=== PATIENT | female | born 1950 | race Caucasian/White ===

== ENCOUNTER 2021-02-27 20:10 | Inpatient (IN) | payer MEDICARE ==
[2021-02-27] MEDS ORDERED: Ondansetron PF 4 MG/2 ML Vial IVP PRN (21:20)
[2021-02-27] MEDS ORDERED: Acetaminophen 650 MG Suppository PR PRN (21:20)
[2021-02-27] MEDS ORDERED: Bisacodyl 10 MG SUPP PR PRN (21:20)
[2021-02-27] MEDS ORDERED: hydrALAZINE 20 MG/ML VIAL SLOW IVP PRN (21:20)
[2021-02-27] MEDS ORDERED: Aspirin 300 MG Suppository ONE (21:33)
[2021-02-27] MEDS ORDERED: Ondansetron PF 4 MG/2 ML Vial ONE (21:57)
[2021-02-27] MEDS ORDERED: Enoxaparin Sodium 40 MG/0.4 ML SYRINGE SC SCH (22:30)
[2021-02-28] MEDS: Lactated Ringer's 1,000 ML IV SCH ×2 (02:42→14:08)
[2021-02-28 02:44] VITALS: BMI 26.5
[2021-02-28] MEDS ORDERED: Enoxaparin Sodium 40 MG/0.4 ML SYRINGE ONE (02:51)
[2021-02-28 06:36] LABS: Hemoglobin 12.4 g/dL (12.0-16.0); Mean Corpuscular HGB CONC 33.7 g/dL (32.0-36.0); Mean Corpuscular Hemoglobin 28.2 pg (27.0-31.0); Mean Corpuscular Volume 83.7 fL (78.0-98.0); Mean Platelet Volume 7.4 fL (7.4-10.4); Platelet Count 435 thou/uL (130-400); Red Blood Cell (RBC) Count 4.39 mill/uL (4.20-5.40); White Blood Cell (WBC) Count 13.7 thou/uL (4.8-10.8)
[2021-02-28 06:37] LABS: Band 3 % (5-11); Lymphocytes 10 % (21-51); MDiff Complete? YES; Monocytes 5 % (0-10); Neutrophil 82 % (42-75)
[2021-02-28 06:45] LABS: ALT (SGPT) 12 U/L (8-55); AST (SGOT) 16 U/L (5-34); Albumin 3.8 g/dL (3.4-4.8); Alkaline Phosphatase 95 U/L (40-110); Anion Gap 19 mmol/L (10-20); BUN (Urea Nitrogen) 21 mg/dL (9.8-20.1); Bilirubin, Total 0.5 mg/dL (0.2-1.2); Calc. Creatinine Clearance 62 mL/min (70-130); Carbon Dioxide 19 mmol/L (23-31); Cardiac Risk 6.3 (Less than 4.5); Chloride 99 mmol/L (98-107); Cholesterol 246 mg/dl (< 200 Desired); Globulin 3.3 g/dL (2.4-3.5); Glucose 144 mg/dL (83-110); HDL Cholesterol 39 mg/dL (>60 Neg Risk); Potassium 3.3 mmol/L (3.5-5.1); Protein, Total 7.1 g/dL (5.8-8.1); Sodium 134 mmol/L (136-145); Triglycerides 707 mg/dL (Less than 150)
[2021-02-28] MEDS ORDERED: Enoxaparin Sodium 30 MG/0.3 ML SYRINGE SC SCH (09:00)
[2021-02-28] MEDS ORDERED: FLU VACC QS2021-22(65YR UP)/PF 240 MCG/0.7 ML SYRINGE IM ONE (09:00)
[2021-02-28] MEDS ORDERED: Aspirin 300 MG Suppository PR SCH (09:00)
[2021-02-28] MEDS ORDERED: Famotidine/PF 20 mg/2ml Vial SLOW IVP SCH (09:00)
[2021-02-28] MEDS ORDERED: Famotidine/PF 20 mg/2ml Vial ONE (09:27)
[2021-02-28] MEDS ORDERED: Aspirin 300 MG Suppository ONE (09:27)
[2021-02-28] MEDS ORDERED: Enoxaparin Sodium 30 MG/0.3 ML SYRINGE ONE (09:27)
[2021-02-28 11:10] LABS: Syphilis Antibody Nonreactive (Nonreactive); Syphilis Antibody Index 0.03 S/CO (<1.00 Non-Reactive)
[2021-02-28 12:29] LABS: SARS-CoV-2 PCR by NAA Not Detected (NotDetected)
[2021-02-28 15:43] LABS: ANA Symphony (Qualitative) Negative (Negative); ANA Symphony (Quantitative) 0.2 Ratio (< 0.7 Negative); CCP IgG Antibody 1.6 EliAU/mL (<7 Negative); EliA RAS New Method **** NEW METHOD ****; Rheumatoid Factor IgA Antibody 7.7 IU/mL (<14 Negative); Rheumatoid Factor IgM Antibody Less than 0.5 IU/mL (<3.5 Negative); dsDNA IgG Antibody 4.2 IU/mL (<10 Negative)
[2021-02-28 18:58] LABS: Bacteria/HPF 4+ HPF (None Seen); Bilirubin Negative (Negative); Blood, Urine Trace (Negative); Clarity Clear (Clear); Glucose, Urine (Dipstick) Normal (Negative); Ketone, Urine 40 mg/dL (Negative); Leukocyte 25 Leu/uL (Negative); Nitrite Negative (Negative); Protein, Urine (Dipstick) Negative (Neg-Trace); RBC/HPF 0-3 HPF (0-3); Specific Gravity, Urine 1.019 (1.002-1.036); Squamous Epithelial 0-3 HPF (0-3); Urobilinogen Normal mg/dL (Less than 2); pH, Urine 6.5 (5.0-9.0)
[2021-02-28] MEDS ORDERED: Electrolyte Replacement Protocol 1 EACH FS PRN (19:40)
[2021-02-28] MEDS ORDERED: Acetaminophen 325 MG TAB ONE ×2 (19:56)
[2021-02-28] MEDS ORDERED: cefTRIAXone\\ROCEPHIN 1 GM VIAL ONE (19:58)
[2021-02-28] MEDS: cefTRIAXone\\ROCEPHIN 1 GM in Sodium Chloride 0.9% 100 ML IVPB SCH (20:04)
[2021-02-28] MEDS: Atorvastatin Calcium 40 MG TAB PO SCH (20:04)
[2021-02-28] MEDS: Acetaminophen 325 MG TAB PO PRN (20:05)
[2021-03-01 07:05] LABS: #Basophils 0.1 thou/uL (0.0-0.2); #Eosinphils 0.1 thou/uL (0.0-0.7); #Lymphocytes 2.9 thou/uL (1.20-3.40); #Monocytes 0.8 thou/uL (0.11-0.59); #Neutrophils 4.8 thou/uL (1.40-6.50); %Eosinophils 1.2 % (0.0-10.0); %Lymphocytes 33.2 % (21.0-51.0); %Monocytes 9.3 % (0.0-10.0); %Neutrophils 55.3 % (42.0-75.0); Mean Corpuscular HGB CONC 32.8 g/dL (32.0-36.0); Mean Corpuscular Hemoglobin 27.9 pg (27.0-31.0); Mean Platelet Volume 6.9 fL (7.4-10.4); Platelet Count 352 thou/uL (130-400); White Blood Cell (WBC) Count 8.6 thou/uL (4.8-10.8)
[2021-03-01 07:25] LABS: Anion Gap 13 mmol/L (10-20); BUN (Urea Nitrogen) 14 mg/dL (9.8-20.1); Calc. Creatinine Clearance 79 mL/min (70-130); Calcium 8.4 mg/dL (7.8-10.44); Carbon Dioxide 24 mmol/L (23-31); Chloride 103 mmol/L (98-107); Glucose 112 mg/dL (83-110); Potassium 3.1 mmol/L (3.5-5.1); Sodium 137 mmol/L (136-145)
[2021-03-01 07:26] LABS: Hemoglobin A1c 5.6 % (4.0-6.0)
[2021-03-01 07:50] LABS: Thyroid Stimulating Hormone 1.2694 uIU/mL (0.35-4.94)
[2021-03-01] MEDS ORDERED: Magnesium 2 GM/50 ML 2 GM in Premix Bag 1 BAG IVPB SCH (08:00)
[2021-03-01] MEDS ORDERED: Potassium Chloride 20 MEQ TAB PO SCH (08:00)
[2021-03-01] MEDS: Acetaminophen 325 MG TAB PO PRN ×3 (08:43→20:31)
[2021-03-01] MEDS: Aspirin 81 mg Enteric Coated Tablet PO SCH (08:43)
[2021-03-01] MEDS: Enoxaparin Sodium 40 MG/0.4 ML SYRINGE SC SCH (08:49)
[2021-03-01] MEDS ORDERED: Pantoprazole 40 MG VIAL IVP SCH (09:00)
[2021-03-01] MEDS: cefTRIAXone\\ROCEPHIN 1 GM in Sodium Chloride 0.9% 100 ML IVPB SCH (20:29)
[2021-03-01] MEDS: Atorvastatin Calcium 40 MG TAB PO SCH (20:30)
[2021-03-02] MEDS: Enoxaparin Sodium 40 MG/0.4 ML SYRINGE SC SCH (08:27)
[2021-03-02] MEDS: Aspirin 81 mg Enteric Coated Tablet PO SCH (08:27)
[2021-03-02] MEDS: Acetaminophen 325 MG TAB PO PRN ×2 (08:28→20:00)
[2021-03-02 08:47] LABS: #Eosinphils 0.2 thou/uL (0.0-0.7); #Monocytes 0.7 thou/uL (0.11-0.59); #Neutrophils 4.5 thou/uL (1.40-6.50); %Basophils 0.4 % (0.0-1.0); %Eosinophils 2.7 % (0.0-10.0); %Lymphocytes 26.9 % (21.0-51.0); %Neutrophils 61.1 % (42.0-75.0); Mean Corpuscular HGB CONC 32.3 g/dL (32.0-36.0); Mean Corpuscular Hemoglobin 27.9 pg (27.0-31.0); Mean Corpuscular Volume 86.2 fL (78.0-98.0); Mean Platelet Volume 7.1 fL (7.4-10.4); Platelet Count 347 thou/uL (130-400); RBC Distribution Width 13.1 % (11.5-14.5); Red Blood Cell (RBC) Count 4.31 mill/uL (4.20-5.40); White Blood Cell (WBC) Count 7.4 thou/uL (4.8-10.8)
[2021-03-02] MEDS ORDERED: Zinc Sulfate 220 MG CAP PO SCH (09:00)
[2021-03-02] MEDS ORDERED: Oxybutynin ER 5 MG TAB PO SCH (09:00)
[2021-03-02] MEDS ORDERED: DULoxetine 60 MG CAP PO SCH (09:00)
[2021-03-02 09:06] LABS: Anion Gap 15 mmol/L (10-20); BUN (Urea Nitrogen) 15 mg/dL (9.8-20.1); Calc. Creatinine Clearance 79 mL/min (70-130); Calcium 8.5 mg/dL (7.8-10.44); Carbon Dioxide 23 mmol/L (23-31); Chloride 105 mmol/L (98-107); Glucose 116 mg/dL (83-110); Potassium 3.5 mmol/L (3.5-5.1); Sodium 139 mmol/L (136-145)
[2021-03-02] MEDS ORDERED: Potassium Chloride 20 MEQ TAB PO SCH (09:15)
[2021-03-02] MEDS ORDERED: Losartan 25 MG TAB PO SCH (17:15)
[2021-03-02] MEDS ORDERED: Clopidogrel Bisulfate 75 MG TAB PO SCH (18:45)
[2021-03-02] MEDS: Atorvastatin Calcium 40 MG TAB PO SCH (20:00)
[2021-03-02] MEDS: cefTRIAXone\\ROCEPHIN 1 GM in Sodium Chloride 0.9% 100 ML IVPB SCH (20:00)
[2021-03-02 20:12] VITALS: BP 173/86; TEMP 98
== END 2021-03-02 23:15 | DRG 64 ==
LOC: ERS 20:10 → ERHOLD 20:49 → NEURO 02-28 22:14
PROVIDERS: ADMIT Internal Medicine; ATTEND Nurse Practitioner Family
DX: I63.9 Cerebral infarction, unspecified (principal); G93.6 Cerebral edema; N39.0 Urinary tract infection, site not specified; Z20.822 Contact with and (suspected) exposure to COVID-19; I10 Essential (primary) hypertension; E78.5 Hyperlipidemia, unspecified; K21.9 Gastro-esophageal reflux disease without esophagitis; R47.01 Aphasia; F32.A Depression, unspecified; R29.810 Facial weakness; E87.6 Hypokalemia; R29.707 NIHSS score 7; R47.02 Dysphasia; B96.20 Unspecified Escherichia coli [E. coli] as the cause of diseases classified elsewhere; Z79.899 Other long term (current) drug therapy; Z79.82 Long term (current) use of aspirin; Z79.02 Long term (current) use of antithrombotics/antiplatelets; Z88.6 Allergy status to analgesic agent; Z88.0 Allergy status to penicillin; Z88.2 Allergy status to sulfonamides; Z90.49 Acquired absence of other specified parts of digestive tract; Z90.710 Acquired absence of both cervix and uterus
CPT/HCPCS: 36415; 36416; 70551; 80048; 80053; 80061; 81001; 82607; 82746; 83036; 83090; 83520; 83735; 84443; 85007; 85025; 85027; 85652; 86038; 86200; 86225; 86780; 87077; 87086; 87186; 93306; 99285; J0696; J1650; J2405; J3475; J3490; J7120; S0028; U0003; U0005

== ENCOUNTER 2021-04-27 14:34 | Outpatient (CLI) | payer MEDICARE | END 2021-04-27 14:35 | disposition home or self-care (01) | LOC: TBSIIMAG 14:34 | PROVIDERS: ATTEND Specialist | DX: M54.50 Low back pain, unspecified (principal); M51.36 Other intervertebral disc degeneration, lumbar region; M48.061 Spinal stenosis, lumbar region without neurogenic claudication; M47.816 Spondylosis without myelopathy or radiculopathy, lumbar region | CPT/HCPCS: 72148 ==

== ENCOUNTER 2022-06-06 08:51 | Outpatient (CLI) | payer MEDICARE | END 2022-06-06 08:52 | disposition home or self-care (01) | LOC: BICMRI 08:51 | PROVIDERS: ATTEND Specialist | DX: M54.12 Radiculopathy, cervical region (principal); M47.12 Other spondylosis with myelopathy, cervical region | CPT/HCPCS: 72141 ==

== ENCOUNTER 2024-01-19 23:52 | Observation (INO) | payer MEDICARE ==
[2024-01-20 00:07] VITALS: BMI 24.3
[2024-01-20] MEDS ORDERED: Acetaminophen 650 MG Suppository PR PRN (02:57)
[2024-01-20 04:07] LABS: #Basophils 0.05 10x3/uL (0.0-0.2); %Basophils 0.5 % (0.0-1.0); %Eosinophils 3.8 % (0.0-10.0); %Lymphocytes 37.1 % (21.0-51.0); %Monocytes 8.7 % (0.0-10.0); %Neutrophils 49.7 % (42.0-75.0); Hematocrit 36.1 % (36.0-47.0); Hemoglobin 12.2 g/dL (12.0-16.0); Mean Corpuscular HGB CONC 33.8 g/dL (32.0-36.0); Mean Corpuscular Hemoglobin 30.3 pg (27.0-31.0); Mean Corpuscular Volume 89.6 fL (78.0-98.0); Mean Platelet Volume 9.9 fL (7.4-10.4); Platelet Count 244 10x3/uL (130-400); RBC Distribution Width 14.3 % (11.5-14.5); Red Blood Cell (RBC) Count 4.03 mill/uL (4.20-5.40)
[2024-01-20 04:17] LABS: Anion Gap 14 mmol/L (10-20); BUN (Urea Nitrogen) 19 mg/dL (9.8-20.1); Calc. Creatinine Clearance 68 mL/min (70-130); Calcium 9.3 mg/dL (7.8-10.44); Carbon Dioxide 23 mmol/L (23-31); Chloride 108 mmol/L (98-107); Estimated GFR 85; Glucose 97 mg/dL (83-110); Sodium 141 mmol/L (136-145)
[2024-01-20] MEDS ORDERED: Vibegron [Gemtesa] 75 MG Tablet PO SCH (09:00)
[2024-01-20] MEDS ORDERED: Famotidine 20 MG TAB PO SCH (09:00)
[2024-01-20] MEDS ORDERED: Famotidine/PF 20 mg/2ml Vial SLOW IVP SCH (09:00)
[2024-01-20] MEDS: Losartan 25 MG TAB PO SCH (09:33)
[2024-01-20] MEDS: Vit A,C & E/Lutein/Minerals Tablet PO SCH (09:33)
[2024-01-20] MEDS: Rosuvastatin 20 MG TAB PO SCH (09:33)
[2024-01-20] MEDS: Potassium Chloride 20 MEQ TAB PO SCH (09:33)
[2024-01-20] MEDS: Clopidogrel Bisulfate 75 MG TAB PO SCH (09:33)
[2024-01-20] MEDS: Cholecalciferol 1,000 UNITS (25 MCG) TAB PO SCH (09:34)
[2024-01-20] MEDS: Zinc Sulfate 220 MG CAP PO SCH (09:34)
[2024-01-20] MEDS: CeleCOXIB 100 MG CAP PO SCH (09:34)
[2024-01-20] MEDS: Pantoprazole DR 40 MG TAB PO SCH (09:34)
[2024-01-20] MEDS: Ezetimibe 10 MG TAB PO SCH (09:34)
[2024-01-20] MEDS: Bisoprolol Fumarate 5 MG TAB PO SCH (09:34)
[2024-01-20] MEDS: Hydrochlorothiazide 25 MG TAB PO SCH (09:52)
[2024-01-20] MEDS: Ondansetron PF 4 MG/2 ML Vial IVP PRN (11:10)
[2024-01-20] MEDS: Ondansetron ODT 4 MG TAB PO PRN (15:13)
[2024-01-20] MEDS ORDERED: [UNRECOGNIZED DRUG - OTHER] PO SCH (21:00)
[2024-01-20] MEDS: Aspirin 325 mg Enteric Coated Tablet PO SCH (21:03)
[2024-01-20] MEDS: DULoxetine 30 MG CAP PO SCH (21:04)
[2024-01-20] MEDS: Acetaminophen 325 MG TAB PO SCH (21:26)
[2024-01-21 13:17] VITALS: BP 100/65; TEMP 97.5
== END 2024-01-21 15:40 | disposition home or self-care (01) ==
LOC: UNDOADMOB 23:52 → 2SE 23:52
PROVIDERS: ADMIT Student in an Organized Health Care Education/Training Program; ATTEND Internal Medicine
PROC: B246ZZZ Ultrasonography of Right and Left Heart (ICD-10-PCS; principal; 2024-01-20)
DX: R42 Dizziness and giddiness (principal); R29.810 Facial weakness; I10 Essential (primary) hypertension; K21.9 Gastro-esophageal reflux disease without esophagitis; E78.5 Hyperlipidemia, unspecified; R00.1 Bradycardia, unspecified; Z88.5 Allergy status to narcotic agent; Z88.0 Allergy status to penicillin; Z88.2 Allergy status to sulfonamides; Z86.73 Personal history of transient ischemic attack (TIA), and cerebral infarction without residual deficits; Z95.818 Presence of other cardiac implants and grafts; Z90.49 Acquired absence of other specified parts of digestive tract; Z90.710 Acquired absence of both cervix and uterus; Z98.890 Other specified postprocedural states
CPT/HCPCS: 70551; 80048; 85025; 93306; 96374; G0378 ×2; J2405; Q0162; 36415